=== PATIENT | female | born 1980 | race Caucasian/White ===

== ENCOUNTER 2022-01-27 05:49 | Emergency (ER) | payer OTHER ==
[2022-01-27 06:17] VITALS: BP 138/91; PULSE 95; RESP 17; TEMP 98.5; BMI 32.5
[2022-01-27] MEDS ORDERED: ACETAMINOPHEN 1000 MG/100 ML BAG IVPB ONE (07:53)
[2022-01-27] MEDS ORDERED: ACETAMINOPHEN 500 MG TABLET (FP) PO ONE (08:14)
[2022-01-27] MEDS ORDERED: MAG HYDROX/AL HYDROX/SIMETH 30 ML UNIT-DOSE CUP PO ONE (08:18)
[2022-01-27] MEDS ORDERED: FAMOTIDINE 20 MG TABLET PO ONE (08:18)
[2022-01-27] MEDS ORDERED: MAG HYDROX/AL HYDROX/SIMETH 30 ML UNIT-DOSE CUP ONE (08:30)
[2022-01-27] MEDS ORDERED: FAMOTIDINE 20 MG TABLET ONE (08:30)
[2022-01-27] MEDS ORDERED: ACETAMINOPHEN 500 MG TABLET (FP) ONE (08:31)
[2022-01-27 08:59] LABS: CHLORIDE 105 mmol/L (98-107); SODIUM 135 mmol/L (136-145)
[2022-01-27 09:01] LABS: CALCIUM 8.9 mg/dL (8.5-10.1)
[2022-01-27 09:02] LABS: ALBUMIN 3.8 g/dl (3.4-5.0); BLOOD UREA NITROGEN 21.2 mg/dL (7-18); CO2 25 mmol/L (21-32); GLUCOSE,RANDOM 75 mg/dL (74-106)
[2022-01-27 09:04] LABS: CREATININE 0.8 mg/dL (0.55-1.3); SGOT/AST 73 U/L (15-37)
[2022-01-27 09:06] LABS: BILIRUBIN,TOTAL 0.4 mg/dL (0.2-1); TOT PROT 8.6 g/dl (6.4-8.2)
[2022-01-27 09:07] LABS: ALK PHOS 88 U/L (45-117)
[2022-01-27 09:19] LABS: ANION GAP 5 MMOL/L (8-16); SGPT/ALT 38 U/L (13-61)
[2022-01-27 09:26] LABS: BASO % 0.8 % (0-2.0); EOS % 1.1 % (0-4.5); HEMATOCRIT 35.5 % (32.4-45.2); HEMOGLOBIN 12.1 GM/dL (10.7-15.3); LYMPH % 26.3 % (8-40); MCH 31.6 pg (25.7-33.7); MEAN CELL VOLUME 92.8 fl (80-96); MEAN PLT VOLUME 9.1 fl (7.5-11.1); MONO % 6.3 % (3.8-10.2); NEUT % 65.5 % (42.8-82.8); PLATELET COUNT 276 10^3/uL (134-434); RBC 3.82 M/mm3 (3.60-5.2); RDW 13.4 % (11.6-15.6); WHITE BLOOD COUNT 8.6 K/mm3 (4.0-10.0)
[2022-01-27 11:41] LABS: ALBUMIN 3.8 g/dl (3.4-5.0); CALCIUM 9.2 mg/dL (8.5-10.1)
[2022-01-27 11:43] LABS: CREATININE 0.7 mg/dL (0.55-1.3)
[2022-01-27 11:45] LABS: BILIRUBIN,TOTAL 0.4 mg/dL (0.2-1); TOT PROT 7.8 g/dl (6.4-8.2)
== END 2022-01-27 12:31 | disposition home or self-care (01) ==
LOC: JER 05:49
DX: R07.89 Other chest pain (principal)
CPT/HCPCS: 36415; 71046-TC-FY; 80053; 84484; 85025; 93005; 93010; 99285-25